=== PATIENT | male | born 1980 | race Caucasian/White ===

== ENCOUNTER 2023-08-20 10:07 | Emergency (ER) | payer SELFPAY ==
[2023-08-20 10:35] VITALS: BP 174/62; PULSE 86; RESP 18; TEMP 36.6; O2SAT 99; BMI 26.1
--- NOTE | 2023-08-20 10:35 | EXP.UTC ---
Discharge Plan Disposition Patient Disposition: Home, Self-Care Condition: Good Prescriptions Prescriptions: New amlodipine 5 mg tablet 5 mg PO DAILY Qty: 30 0RF No Action lisinopril 40 mg Tablet 40 mg PO DAILY Referrals Follow up/Referrals: Wang Valerio MD [Primary Care Provider] - See instructions Tyree Diez MD [Staff Physician] - See instructions Activity Restrictions/Add. Instructions Additional Instructions/Restrictions: Take the medications as directed. Follow up with your regular doctor. I put in a referral to cardiology because of your symptoms and your family history. Go to the ER for any chest pain. GO TO THE ER FOR ANY WORSENING SYMPTOMS Eat a low sodium diet. Try to keep your daily sodium intake to less than 2000 mg per day. Clinical Impressions Clinical Impression: Stage 2 hypertension, Family history of coronary artery disease Instructions Patient Instructions: Essential Hypertension, Amlodipine Discharge ED Provider: Ankush Luke [facility] General Stated complaint: fatigue, tingling in feet Time Seen by Provider: 08/20/23 10:35 History of Present Illness Provider Complaint: He states that for the past 1 month he has had fatigue, felt weak at times, felt bad, and had elevated blood pressure. He has a history of hypertension and he take lisinopril 40 mg daily for it. His pcp prescribed HCTZ at his last visit, but he was unable to take this because it made him feel very fatigued. He denies any chest pain and shortness of breath. He states that his potassium level was low once in the past and he felt bad like he has been feeling lately. Related Data Home Medications Medication Instructions Recorded Confirmed lisinopril 40 mg tablet 40 mg PO DAILY 08/20/23 08/20/23 Previous Rx's Medication Instructions Recorded amlodipine 5 mg tablet 5 mg PO DAILY #30 tabs 08/20/23 Allergies Allergy/AdvReac Type Severity Reaction Status Date / Time hydrochlorothiazide Allergy Verified 08/20/23 10:42 [facility] Disclaimer: The information contained in this section may have been updated after the patient was seen, as this information can be updated by other users. Social History Smoking Status: Never smoker alcohol intake: former current occupational status: employed Travel in the last 8 weeks: None ROS Obtained: Yes All systems reviewed & no additional complaints except as documented Constitutional Constitutional: Denies chills and Denies fever(s) Eyes Eyes: Denies eye discharge ENT Ears, Nose, Mouth, and Throat: Denies dizziness, Denies otalgia and Denies sore throat Cardiovascular Cardiovascular: Denies chest pain Respiratory Respiratory: Denies shortness of breath, Denies chest congestion, Denies cough, Denies stridor and Denies wheezing Gastrointestinal Gastrointestingal: Denies nausea or vomiting Musculoskeletal Musculoskeletal: Reports system reviewed and no additional complaints, except as documented and Denies arthralgias Integumentary/Breasts Skin/Breast: Denies rash Neurologic Neurologic: Denies dizziness and Denies paresthesias Allergic/Immunologic Allergic/Immunologic: Denies wheezing Physical Exam General General appearance: alert and in no apparent distress Head Head exam: atraumatic, normocephalic and normal inspection Eye Eye exam: Present normal appearance, PERRL and EOMI ENT ENT exam: Present normal exam, normal oropharynx, mucous membranes moist, TM's normal bilaterally and normal external ear exam Neck Neck exam: Present normal inspection, full ROM and trachea midline; Absent meningismus or lymphadenopathy Chest Chest inspection: Present normal inspection and symmetric chest wall rise; Absent tenderness Respiratory Respiratory exam: Present normal lung sounds bilaterally; Absent respiratory distress Cardiovascular Cardiovascular exam: Present regular rate and normal rhythm; Absent JVD Abdominal Exam Abdominal exam: Present soft and normal bowel sounds; Absent distention, tenderness or guarding Extremities Exam Extremities exam: Present normal inspection, full ROM and normal capillary refill; Absent calf tenderness Back Exam Back exam: Present normal inspection; Absent tenderness Neurological Exam Neurological exam: Present alert and oriented X3 Psychiatric Psychiatric exam: Present normal affect and normal mood Skin Skin exam: Present warm, dry, intact and normal color Lymphatic Lymphatic Findings: no adenopathy Medical Decision Making Medical Records Medical records reviewed: No I reviewed the patient's medical records. Kwadwo Inquiry Pt receiving controlled substance: No Lab Data Lab results reviewed: Yes I reviewed the patient's lab results. 08/20/23 11:02 08/20/23 11:02
--- NOTE | 2023-08-20 10:43 | XR_ITS ---
FINAL REPORT CLINICAL HISTORY: weakness COMPARISON: None FINDINGS: Two views of the chest were obtained. The heart size and pulmonary vascularity are within normal limits. The mediastinum is normal. No acute pulmonary abnormality is identified. There is no pneumothorax. The bony thorax is intact. IMPRESSION: No active cardiopulmonary disease. Reviewed, Interpreted and Dictated by Avinash Lucas III, MD Transcribed by Doris Ruby Authenticated and [facility]
--- NOTE | 2023-08-20 11:04 | PC.NURSE ---
Sent blood work to lab via tube system
[2023-08-20 11:09] LABS: Basophils # 0.1 K/mm3 (0-0.2); Basophils % 0.6 % (0.1-2.0); Eosinophils # 0.1 K/mm3 (0.0-0.4); Eosinophils % 1.1 % (0.1-12.0); Hemoglobin 16.5 g/dL (14.1-18.0); Lymphocytes % 18.5 % (10-50); Mean Corpuscular Hemoglobin 31.7 pg (27.0-31.2); Mean Corpuscular Volume 96.1 fl (80-94); Mean Platelet Volume 7.7 fl (7.4-10.4); Monocytes # 0.5 K/mm3 (0.1-1.0); Monocytes % 4.6 % (1.7-9.3); Neutrophils % 75.1 % (37.0-80.0); Platelet Count 318 K/mm3 (142-424); Red Blood Count 5.21 M/mm3 (4.60-6.20); Red Cell Distribution Width 13.6 % (11.5-17.5); White Blood Count 10.7 K/mm3 (4.8-10.8)
[2023-08-20 11:13] LABS: Chloride 106 mmol/L (98-107); Potassium 4.3 mmoL/L (3.5-5.1); Sodium 141 mmol/L (136-145)
[2023-08-20 11:15] LABS: Blood Urea Nitrogen 6 mg/dl (9-20); Creatinine Clearance Estimated 147 mL/min (50-200); Estimated Glomerular Filt Rate 106 ml/min (>60); GFR (African American) 128 ML/MIN (>60)
[2023-08-20 11:16] LABS: Anion Gap 15.3 mEq/L (5-15); Carbon Dioxide 24 mmol/L (22.0-30.0); Glucose 105 mg/dl (74-100)
[2023-08-20 11:17] LABS: Magnesium 2.1 mg/dl (1.6-2.3)
--- NOTE | 2023-08-20 11:23 | ECG_ITS ---
APPROVED REPORT Exam: Resting ECG HR:67 bpm ECG Measurements Heart Rate 67 AXES VT 122 P 44 QRSd 113 QRS 87 QT 380 T 61 QTc 395 Conclusion SINUS RHYTHM INCOMPLETE RIGHT BUNDLE BRANCH BLOCK [90+ ms QRS DURATION, TERMINAL R IN V1/V2, 40+ ms S IN I/aVL/V4/V5/V6] BORDERLINE ECG UNCONFIRMED REPORT Electronically signed by : Ankush Arreola, 08/20/2023 15:01:00
--- NOTE | 2023-08-20 12:11 | PC.NURSE ---
Gave patient a list a accepting PCP
[2023-08-20 12:13] VITALS: BP 174/62; PULSE 86; RESP 18; TEMP 36.6; O2SAT 99
== END 2023-08-20 12:13 | disposition home or self-care (01) ==
PROVIDERS: Emergency Provider Nurse Practitioner Family; PCP Family Medicine
DX: R53.83 Other fatigue (principal); R53.81 Other malaise; I10 Essential (primary) hypertension; Z82.49 Family history of ischemic heart disease and other diseases of the circulatory system
CPT/HCPCS: 71046; 80048; 83735; 85025; 93005; 99204; 99212; G0463

== ENCOUNTER 2023-08-22 09:44 | Emergency (ER) | payer SELFPAY ==
[2023-08-22] VITALS (9 sets, daily range): BP systolic 116–176; BP diastolic 77–99; PULSE 65–93; RESP 14–18; TEMP 36.5; O2SAT 94–100; BMI 25.0
--- NOTE | 2023-08-22 09:42 | ECG_ITS ---
APPROVED REPORT Exam: Resting ECG HR:95 bpm ECG Measurements Heart Rate 95 AXES ME 112 P 53 QRSd 118 QRS 80 QT 337 T 47 QTc 390 Conclusion SINUS RHYTHM WITH SHORT ME INTERVAL INCOMPLETE RIGHT BUNDLE BRANCH BLOCK [90+ ms QRS DURATION, TERMINAL R IN V1/V2, 40+ ms S IN I/aVL/V4/V5/V6] BORDERLINE ECG UNCONFIRMED REPORT Electronically signed by : Ankush Arreola, 08/22/2023 15:03:10
--- NOTE | 2023-08-22 09:50 | XR_ITS ---
FINAL REPORT CLINICAL HISTORY: racing heart weakness COMPARISON: 08/20/2023 FINDINGS: Two views of the chest were obtained. The heart size and pulmonary vascularity are within normal limits. The mediastinum is normal. No acute pulmonary abnormality is identified. There is no pneumothorax. The bony thorax is intact. IMPRESSION: No active cardiopulmonary disease. Reviewed, Interpreted and Dictated by Avinash Lucas III, MD Transcribed by Darcy Shelley Authenticated and [facility]
[2023-08-22 09:58] LABS: Basophils # 0.1 K/mm3 (0-0.2); Basophils % 0.6 % (0.1-2.0); Eosinophils # 0.3 K/mm3 (0.0-0.4); Eosinophils % 1.4 % (0.1-12.0); Hematocrit 51.7 % (42.0-52.0); Hemoglobin 16.7 g/dL (14.1-18.0); Lymphocytes # 4.1 K/mm3 (0.7-4.5); Lymphocytes % 20.7 % (10-50); Mean Corpuscular HGB Conc 32.3 g/dL (31.8-35.4); Mean Corpuscular Hemoglobin 31.7 pg (27.0-31.2); Mean Corpuscular Volume 98.1 fl (80-94); Mean Platelet Volume 7.6 fl (7.4-10.4); Monocytes # 0.9 K/mm3 (0.1-1.0); Monocytes % 4.5 % (1.7-9.3); Neutrophils # 14.3 K/mm3 (1.8-7.8); Neutrophils % 72.8 % (37.0-80.0); Platelet Count 388 K/mm3 (142-424); Red Blood Count 5.27 M/mm3 (4.60-6.20); Red Cell Distribution Width 13.5 % (11.5-17.5); White Blood Count 19.6 K/mm3 (4.8-10.8)
[2023-08-22 10:02] LABS: MANUAL DIFFERENTIAL MANUAL DIFFERENTIAL (MANUAL DIFF)
[2023-08-22 10:04] LABS: Alanine Aminotransferase 58 U/L (12-78); Albumin Level 5.2 g/dl (3.5-5.0); Albumin/Globulin Ratio 1.6 (1.1-1.8); Alkaline Phosphatase 100 U/L (38-126); Anion Gap 21.4 mEq/L (5-15); Aspartate Amino Transferase 53 U/L (17-59); Bilirubin,Total 0.8 mg/dl (0.2-1.3); Blood Urea Nitrogen 7 mg/dl (9-20); Calcium 9.9 mg/dl (8.4-10.2); Carbon Dioxide 21 mmol/L (22.0-30.0); Chloride 102 mmol/L (98-107); Creatinine Clearance Estimated 141 mL/min (50-200); Estimated Glomerular Filt Rate 106 ml/min (>60); GFR (African American) 128 ML/MIN (>60); Globulin 3.3 g/dL (1.3-3.2); Glucose 142 mg/dl (74-100); Potassium 3.4 mmoL/L (3.5-5.1); Sodium 141 mmol/L (136-145); Total Protein,Serum 8.5 g/dl (6.3-8.2)
[2023-08-22 10:39] LABS: Troponin I < 0.01 ng/ml (0.00-0.034)
[2023-08-22 10:57] LABS: Thyroid Stimulating Hormone 1.11 uIU/mL (0.465-4.68)
[2023-08-22 10:58] LABS: Lymphocytes % 34 % (10-50); Monocytes % 3 % (2-9); Neutrophils % 63 % (42-76); Total Cells Counted 100
[2023-08-22 11:01] LABS: RBC Morphology Normal
[2023-08-22 11:02] LABS: Platelet Estimate Normal
--- NOTE | 2023-08-22 11:04 | HMH.EDGENADL ---
Discharge Plan Disposition Patient Disposition: Home, Self-Care Prescriptions Prescriptions: New loperamide 2 mg capsule 2 mg PO Q6H PRN (Reason: loose stool) 5 Days Qty: 20 0RF Rx Instructions: Please take 4 mg initially, followed by 2 mg after each loose stool, maximum 16 mg/day ondansetron 4 mg tablet,disintegrating 4 mg PO Q6H PRN (Reason: nausea and vomiting) 5 Days Qty: 20 0RF No Action lisinopril 40 mg Tablet 40 mg PO DAILY amlodipine 5 mg tablet 5 mg PO DAILY Qty: 30 0RF Referrals Follow up/Referrals: Wang Valerio MD [Primary Care Provider] - See instructions Michelle Huber APRN [Nurse Practitioner] - See instructions Tyree Diez MD [Staff Physician] - See instructions Activity Restrictions/Add. Instructions Additional Instructions/Restrictions: No evidence of an acute cardiopulmonary emergency today. You have been set up with an event/Holter monitor please follow-up with cardiology regarding this as well as your chest pain. Also may follow-up with Michelle Huber regarding your anxiety and stress. Return with any significant worsening of your symptoms or other concerns. Clinical Impressions Clinical Impression: Palpitations, Anxiety, Nausea vomiting and diarrhea, Atypical chest pain Discharge ED Provider: Jeffrey Arreola General Adult HPI General Chief complaint: Arrhythmia/Palpitations Stated complaint: chest pain Time Seen by Provider: 08/22/23 10:51 Mode of Arrival: Ambulatory Source of Information: Patient Limitations: No Limitations Description of Symptoms (Recalled from ER Triage Doc. by RN): Patient reports that his heart has been racing for approx 1 week. Also complains of generalized weakness. History of Present Illness HPI narrative: Patient is a 43-year-old male presents today with palpitations and chest discomfort. States has had some palpitations this started with some vomiting and diarrhea on Saturday and has been intermittently associate with some chest discomfort he states he feels as if something is leaving his body when he is having these palpitation episodes. Most recently prior to arrival felt as though he might pass out. Patient currently is asymptomatic. Patient does have a family history both father and maternal grandfather of having coronary disease and they inquire about getting stress test and heart cath. He has not had any exertional symptoms no diaphoresis associated with this shortness of breath radiation etc. Describes it as a pounding and heart fluttering. Related Data Home Medications Medication Instructions Recorded Confirmed lisinopril 40 mg tablet 40 mg PO DAILY 08/20/23 08/20/23 Previous Rx's Medication Instructions Recorded amlodipine 5 mg tablet 5 mg PO DAILY #30 tabs 08/20/23 loperamide 2 mg capsule 2 mg PO Q6H PRN loose stool 5 days 08/22/23 #20 caps ondansetron 4 mg disintegrating 4 mg PO Q6H PRN nausea and 08/22/23 tablet vomiting 5 days #20 tabs Allergies Allergy/AdvReac Type Severity Reaction Status Date / Time hydrochlorothiazide Allergy Verified 08/20/23 10:42 [facility] Disclaimer: The information contained in this section may have been updated after the patient was seen, as this information can be updated by other users. Social History (Updated 08/20/23 @ 14:25 by Ankush Luke APRN) Smoking Status: Current every day smoker alcohol intake: former current occupational status: employed Travel in the last 8 weeks: None ROS Obtained: Yes All systems reviewed & no additional complaints except as documented Physical Exam General General appearance: alert and in no apparent distress Respiratory Respiratory exam: Present normal lung sounds bilaterally Cardiovascular Cardiovascular exam: Present regular rate Neurological Exam Neurological exam: Present alert and oriented X3 Medical Decision Making Kwadwo Inquiry Pt receiving controlled substance: No Vital Signs: 08/22/23 09:44 08/22/23 10:05 08/22/23 10:37 Temperature 97.7 F Temperature Source Oral Pulse Rate 89 87 Pulse Rate [Radial] 93 H Respiratory Rate 18 16 15 Blood Pressure 162/97 H 120/88 Blood Pressure [Right Arm] 176/99 H Blood Pressure Mean [Right Arm] 124 Blood Pressure Source [Right Arm] Automatic Cuff Blood Pressure Position [Right Arm] Sitting 02 Sat by Pulse Oximetry 100 99 96 Oxygen Delivery Method Room Air 08/22/23 11:00 08/22/23 11:30 08/22/23 12:00 Temperature Temperature Source Pulse Rate 77 70 65 Pulse Rate [Radial] Respiratory Rate 16 14 16 Blood Pressure 137/84 116/77 131/82 Blood Pressure [Right Arm] Blood Pressure Mean [Right Arm] Blood Pressure Source [Right Arm] Blood Pressure Position [Right Arm] 02 Sat by Pulse Oximetry 96 94 L 97 Oxygen Delivery Method 08/22/23 12:30 Temperature Temperature Source Pulse Rate 81 Pulse Rate [Radial] Respiratory Rate 14 Blood Pressure 124/82 Blood Pressure [Right Arm] Blood Pressure Mean [Right Arm] Blood Pressure Source [Right Arm] Blood Pressure Position [Right Arm] 02 Sat by Pulse Oximetry 97 Oxygen Delivery Method Lab Data Lab results reviewed: Yes I reviewed the patient's lab results. Lab Results 08/22/23 09:45: WBC 19.6 H D, RBC 5.27, Hgb 16.7, Hct 51.7, MCV 98.1 H, MCH 31.7 H, MCHC 32.3, RDW 13.5, Plt Count 388, MPV 7.6, Neut % (Auto) 72.8, Lymph % (Auto) 20.7, [place] % (Auto) 4.5, Eos % (Auto) 1.4, Baso % (Auto) 0.6, Neut # (Auto) 14.3 H, Lymph # (Auto) 4.1, [place] # (Auto) 0.9, Eos # (Auto) 0.3, Baso # (Auto) 0.1, Total Counted 100, Neutrophils % (Manual) 63, Lymphocytes % (Manual) 34, Monocytes % (Manual) 3, Platelet Estimate Normal, RBC Morphology Normal, Sodium 141, Potassium 3.4 L D, Chloride 102, Carbon Dioxide 21 L, Anion Gap 21.4 H, BUN 7 L, Creatinine 0.80, Estimated Creat Clear 141, Estimated GFR 106, Est GFR ( Amer) 128, Glucose 142 H, Calcium 9.9, Magnesium 2.0, Total Bilirubin 0.8, AST 53, ALT 58, Alkaline Phosphatase 100, Troponin I < 0.01, Total Protein 8.5 H, Albumin 5.2 H, Globulin 3.3 H, Albumin/Globulin Ratio 1.6, TSH 1.11 08/22/23 09:45 08/22/23 09:45 Orders (Tests/Meds): ED MEDICATIONS Generic Name Dose Route Start Last Admin Trade Name Freq PRN Reason Stop Dose Admin Sodium Chloride 10 ml 08/22/23 09:55 Sodium Chloride 0.9% 10ml Flush Syringe IV 09/21/23 09:54 NEEDED PRN Maintain IV Site ORDERS Category Date Time Status XR chest 2V Stat Exams 08/22/23 09:50 Completed Complete Blood Count Auto Diff Stat Lab 08/22/23 09:45 Completed Comprehensive Metabolic Panel Stat Lab 08/22/23 09:45 Completed Magnesium Stat Lab 08/22/23 09:45 Completed TSH [Thyroid Stimulating Hormone] Stat Lab 08/22/23 09:45 Completed Troponin I Q3H Lab 08/22/23 13:00 Ordered Troponin I Q3H Lab 08/22/23 16:00 Ordered Troponin I Stat Lab 08/22/23 09:45 Completed ECG Data Tracing #1: I reviewed this ECG and interpreted as documented below: Ventricular 95 normal sinus rhythm normal axis no significant conduction abnormalities noted there is an incomplete right bundle branch block which is nonspecific HEART Score History (anamnesis): Slightly suspicious ECG: Non-specific disturbance Age: <45 years Risk factors: 1-2 risk factors Troponin: </= normal limit HEART Score: 2 Medical Decision Narrative: Well-appearing 43-year-old with above history. Patient has a low heart score. Troponin undetectably low's been having symptoms for several days at this point no serial troponins needed. Acute coronary syndrome is unlikely. Patient is PERC negative pulmonary embolism is unlikely. He was placed on a monitor no arrhythmia noted however he did state that he still had some palpitations but he was in a normal sinus rhythm the entire time he was here. EKG was unremarkable specifically nothing to explain any type of palpitation arrhythmia syncope at [facility]. With his family history of coronary artery disease he is very concerned about this he will follow-up with cardiology. We are getting a Holter monitor set up for him from the emergency department he will follow-up with cardiology regarding that as well. He states he also has been having some significant anxiety and stress with his daughter and his father recently and he thinks that anxiety may be contributing to this. Lastly he states he also has been having diarrhea and vomiting and possibly has a viral syndrome. Nonetheless he is very well-appearing no emergent medical condition identified specifically no evidence of cardiopulmonary emergency he has been given close outpatient follow-up with cardiology which she understands. He was discharged in stable condition. Critical Care Critical Care Time Critical Care Time: No
--- NOTE | 2023-08-22 13:03 | PC.NURSE ---
Respiratory called to place holter monitor.
--- NOTE | 2023-08-22 13:12 | PC.NURSE ---
WEnt to dc pt, pt mother was did not want pt to be dc, states she wanted pt to stay a few more hours to be monitored, to get up and see if he had an episode so we could catch it. Mother states that the family history of heart attacks is something that concerns her with letting her son go home. Pt states the MD explained the low risk of heart attack and he was being sent home with a holter monitor which would catch an event if he had one, mother states that she wants the MD to come the bedside for further discussion. aware cardiology contacted at this time.
--- NOTE | 2023-08-22 13:14 | PC.NURSE ---
Contacted cardiology to come speak with pt and family
--- NOTE | 2023-08-22 13:36 | PC.NURSE ---
Cardiolomarin Zamora PASSENGER SERVICE AGENT at [facility]
--- NOTE | 2023-08-22 14:00 | EXP.CARD.CON ---
History of Present Illness History of Present Illness Consult date: 08/22/23 Requesting physician: Jeffrey Arreola Consult reason: hypertension Chief complaint: Htn, SOA, tingling History of present illness: 43-year-old white male without known cardiovascular disease presented to the emergency room today with complaints of shortness of breath irregular heartbeat sensation tingling in bilateral upper and lower extremities. He states the symptoms have been occurring episodically for 6 months. They are not affected by activity and not improved with rest. On arrival his blood pressure is 170s and quickly improved to 130s. Troponin and EKG WNL. His symptoms were not necessarily worse today but his family insisted he be evaluated due to family history of cardiovascular disease. Patient's father in April and he has been taking it really hard and having anxiety since that time. He is also dealing with a personal issue with his children at home. Patient was going to be discharged by the emergency room staff but his mother came and was very insistent that he have further workup. After our conversation she feels reassured and we will get him in for testing this week. Patient is leaving next Saturday to go to [place] for camping in [place] for [address] [facility] Disclaimer: The information contained in this section may have been updated after the patient was seen, as this information can be updated by other users. Social History Smoking Status: Current every day smoker alcohol intake: former current occupational status: employed Travel in the last 8 weeks: None Review of Systems Constitutional Constitutional: Denies fatigue and Denies weakness Eyes Eyes: Denies loss of vision ENT Ears, Nose, Mouth, and Throat: Denies hearing loss and Denies vertigo *Cardiovascular Cardiovascular: Denies chest pain, Denies dyspnea and Denies syncope *Respiratory Respiratory: Denies cough and Denies dyspnea *Gastrointestinal Gastrointestinal: Denies change in stool character, Denies nausea and Denies vomiting *Genitourinary Genitourinary: Denies difficulty urinating *Musculoskeletal Musculoskeletal: Denies muscle weakness Integumentary/Breasts Skin/Breast: Denies changing lesions *Neurologic Neurologic: Denies loss of vision, Denies syncope, Denies vertigo and Denies weakness Endocrine Endocrine: Denies fatigue Exam Data for Last 24 hours Vital signs and Labs for Last 24 Hours: Temp Pulse Resp BP Pulse Ox O2 Del Method 97.7 F 88 16 147/90 H 97 Room Air 08/22/23 13:54 08/22/23 13:54 08/22/23 13:54 08/22/23 13:54 08/22/23 13:00 08/22/23 13:54 Laboratory Results - last 24 hr 08/22/23 09:45: WBC 19.6 H D, RBC 5.27, Hgb 16.7, Hct 51.7, MCV 98.1 H, MCH 31.7 H, MCHC 32.3, RDW 13.5, Plt Count 388, MPV 7.6, Neut % (Auto) 72.8, Lymph % (Auto) 20.7, [place] % (Auto) 4.5, Eos % (Auto) 1.4, Baso % (Auto) 0.6, Neut # (Auto) 14.3 H, Lymph # (Auto) 4.1, [place] # (Auto) 0.9, Eos # (Auto) 0.3, Baso # (Auto) 0.1, Total Counted 100, Neutrophils % (Manual) 63, Lymphocytes % (Manual) 34, Monocytes % (Manual) 3, Platelet Estimate Normal, RBC Morphology Normal, Sodium 141, Potassium 3.4 L D, Chloride 102, Carbon Dioxide 21 L, Anion Gap 21.4 H, BUN 7 L, Creatinine 0.80, Estimated Creat Clear 141, Estimated GFR 106, Est GFR ( Amer) 128, Glucose 142 H, Calcium 9.9, Magnesium 2.0, Total Bilirubin 0.8, AST 53, ALT 58, Alkaline Phosphatase 100, Troponin I < 0.01, Total Protein 8.5 H, Albumin 5.2 H, Globulin 3.3 H, Albumin/Globulin Ratio 1.6, TSH 1.11 I & O for Last 24 hours: Intake & Output 08/19/23 08/20/23 08/21/23 08/22/23 23:59 23:59 23:59 23:59 Weight 185 lb Constitutional Constitutional: no acute distress and cooperative *Routine HEENT Exam Eye: Present PERRL *Routine Respiratory Exam Respiratory: Present CTA bilaterally; Absent accessory muscle use, wheezes or crackles *Routine Cardiovascular Exam Cardiovascular: Present RRR, Normal S1 and Normal S2; Absent murmur, gallop or rubs *Routine Abdominal Exam Abdominal: Present soft; Absent tenderness *Routine Extremities Exam Extremities: Present pulses intact; Absent cyanosis or edema *Routine Skin Exam Skin: Present intact; Absent erythema or wounds *Routine Neurological Exam Neurological: Present alert and oriented X3 Routine Psychiatric Exam Psychiatric: Present cooperative Meds Home Medications and Allergies Home Medications Medication Instructions Recorded Confirmed Type amlodipine 5 mg tablet 5 mg PO DAILY #30 tabs 08/20/23 Rx lisinopril 40 mg tablet 40 mg PO DAILY 08/20/23 08/20/23 History loperamide 2 mg capsule 2 mg PO Q6H PRN loose stool 5 days 08/22/23 Rx #20 caps ondansetron 4 mg disintegrating 4 mg PO Q6H PRN nausea and 08/22/23 Rx tablet vomiting 5 days #20 tabs New Prescriptions to Start Prescriptions: loperamide Jeffrey Arreola ondansetron Jeffrey Arreola Allergies Allergy/AdvReac Type Severity Reaction Status Date / Time hydrochlorothiazide Allergy Verified 08/20/23 10:42 Assessment and Plan *Assessment and plan (1) Hypertension: Status: Acute Category: Medical Code(s): I10 - Essential (primary) hypertension (2) Family history of coronary artery disease: Status: Acute Category: Medical Code(s): Z82.49 - Family history of ischemic heart disease and other diseases of the circulatory system (3) Anxiety: Status: Acute Category: Medical Code(s): F41.9 - Anxiety disorder, unspecified Plan Hypertension -Overall well-controlled, continue lisinopril and amlodipine. He can use as needed hydralazine for BP greater than 180. -Keep twice daily blood pressure log -Outpatient will check secondary hypertension workup Shortness of breath and palpitations -Troponin and EKG and labs unremarkable here. -GXT, echo, 48-hour Holter Palpitations -Patient was describing symptoms of palpitations with normal sinus rhythm noted on telemetry, this is likely anxiety driven -Check 48-hour Holter Anxiety -Patient plans to follow-up with his primary care doctor CV stable for DC with outpatient testing within 1 week if possible.
== END 2023-08-22 13:56 | disposition home or self-care (01) ==
PROVIDERS: Emergency Provider Student in an Organized Health Care Education/Training Program; PCP Family Medicine
DX: I10 Essential (primary) hypertension (principal); F41.9 Anxiety disorder, unspecified; R07.89 Other chest pain; R11.2 Nausea with vomiting, unspecified; R19.7 Diarrhea, unspecified; R00.2 Palpitations; F17.210 Nicotine dependence, cigarettes, uncomplicated; Z82.49 Family history of ischemic heart disease and other diseases of the circulatory system
CPT/HCPCS: 71046; 80053; 83735; 84443; 84484; 85007; 85025; 93005; 93225; 93226; 93227; 99284

== ENCOUNTER 2024-04-30 13:55 | Emergency (ER) | payer OTHER, SELFPAY ==
[2024-04-30] VITALS (8 sets, daily range): BP systolic 128–174; BP diastolic 71–103; PULSE 87–105; RESP 13–20; TEMP 36.7; O2SAT 96–100; BMI 27.1
--- NOTE | 2024-04-30 14:13 | PC.WOUNDNOTE ---
[facility] notified of need for EKG
--- NOTE | 2024-04-30 14:16 | ECG_ITS ---
APPROVED REPORT Exam: Resting ECG HR:104 bpm ECG Measurements Heart Rate 104 AXES DE 139 P 51 QRSd 113 QRS 91 QT 331 T 13 QTc 391 Conclusion SINUS TACHYCARDIA BORDERLINE RIGHT AXIS DEVIATION [QRS AXIS > 90] MODERATE INTRAVENTRICULAR CONDUCTION DELAY [110+ ms QRS DURATION] NONSPECIFIC T-WAVE ABNORMALITY ABNORMAL RHYTHM ECG UNCONFIRMED REPORT Electronically signed by : Ericka Hill, 04/30/2024 16:36:17
--- NOTE | 2024-04-30 14:37 | ED_ITS ---
<Statement entered by Ericka Hill MD - 05/03/24 00:04> I was consulted by the MONICA, and we discussed the complexity of problems being addressed. I approved the treatment and management plan for this patient's care in the emergency department, thus performing a substantive portion of the medical decision making. Ericka Hill MD <Statement entered by Chacha Guerra DO - 04/30/24 23:54> I was consulted by the MONICA, and we discussed the complexity of the problems being addressed. I approved the treatment and management plan for this patient's care in the emergency department, thus performing a substantive portion of the medical decision making. Chacha Guerra DO Discharge Plan Disposition Patient Disposition: Home, Self-Care Condition: Good Prescriptions Prescriptions: No Action lisinopril 40 mg Tablet 40 mg PO DAILY amlodipine 5 mg tablet 5 mg PO DAILY Qty: 30 0RF loperamide 2 mg capsule 2 mg PO Q6H PRN (Reason: loose stool) 5 Days Qty: 20 0RF Rx Instructions: Please take 4 mg initially, followed by 2 mg after each loose stool, maximum 16 mg/day ondansetron 4 mg tablet,disintegrating 4 mg PO Q6H PRN (Reason: nausea and vomiting) 5 Days Qty: 20 0RF Referrals Follow up/Referrals: Janey Presley APRN [Primary Care Provider] - See instructions Michelle Huber APRN [Nurse Practitioner] - See instructions Nacho Fernandez MD [Staff Physician] - See instructions Activity Restrictions/Add. Instructions Additional Instructions/Restrictions: As we discussed you need to follow back up with your PCP for further workup of tachycardia from a medical standpoint. I have referred you to both cardiology and behavioral health for your tachycardia and for your anxiety symptoms. If you have any new continued or worsening signs or symptoms follow-up with your PCP sooner. Clinical Impressions Clinical Impression: Tachycardia, Anxiety Print Language Print Language: Mauritanian Discharge ED Provider: Chacha Guerra General Adult HPI General Chief complaint: Arrhythmia/Palpitations Stated complaint: heart pounding,soa, weak, shaky Time Seen by Provider: 04/30/24 14:37 Mode of Arrival: Ambulatory Source of Information: Patient Limitations: No Limitations Description of Symptoms (Recalled from ER Triage Doc. by RN): Pt presents with c/o heart pouding and feeling like his heart is skipping a beat since saturday. Pt states he has a hx of anxiety History of Present Illness HPI narrative: Patient presents for evaluation of palpitations . Patient states that he has been having palpitations for the last 3 days. Patient states that he has been evaluated for this before and was told that it was anxiety and discharge when he was seen for this last summer. Patient has not had any further evaluation from a cardiac or mental health standpoint. Patient said his PCP is starting him on BuSpar which seems to control his symptoms however over the last 3 days he just feels like his heart is beating out of his chest. He denies actual chest pain fever chills shortness of breath hemoptysis hematochezia melena nausea vomiting diarrhea. Patient works every day. Related Data Home Medications ?Medication ?Instructions ?Recorded ?Confirmed lisinopril 40 mg tablet 40 mg PO DAILY 08/20/23 04/30/24 Previous Rx's ?Medication ?Instructions ?Recorded amlodipine 5 mg tablet 5 mg PO DAILY #30 tabs 08/20/23 loperamide 2 mg capsule 2 mg PO Q6H PRN loose stool 5 days 08/22/23 #20 caps ondansetron 4 mg disintegrating 4 mg PO Q6H PRN nausea and 08/22/23 tablet vomiting 5 days #20 tabs Allergies Allergy/AdvReac Type Severity Reaction Status Date / Time hydrochlorothiazide Allergy Verified 08/20/23 10:42 [facility] Disclaimer: The information contained in this section may have been updated after the patient was seen, as this information can be updated by other users. Social History Smoking Status: Former smoker alcohol intake: former current occupational status: employed Travel in the last 8 weeks: None Have you lived/traveled outside [place] in past 30 days?: No Contact w/someone who lives/traveled outside US past 30 days?: No Exposure to someone with infectious disease in past 14 days?: No Do you have a fever (greater than 100.4 F or 38 C)?: No Have you tested positive for COVID-19: No Exposed to someone with COVID-19 in past 14 days?: No Do you have a sore throat?: No Do you have a cough?: No Do you have any weakness?: No Do you have any diarrhea?: No Are you experiencing any unusual bleeding?: No Do you have any muscle aches/pain?: No Do you have any abdominal pain?: No Are you experiencing loss of taste or smell?: No ROS Obtained: Yes Systems reviewed as appropriate & no additional complaints except as documented Physical Exam General General appearance: alert and in no apparent distress Respiratory Respiratory exam: Present normal lung sounds bilaterally Cardiovascular Cardiovascular exam: Present tachycardia Neurological Exam Neurological exam: Present alert, oriented X3 and CN II-XII intact Psychiatric Psychiatric exam: Present anxious Medical Decision Making Medical Records Medical records reviewed: Yes I reviewed the patient's medical records. Screening: Per USPSTF and CDC recommendations, given the prevalence of disease in our region, it is our hospital?s policy to screen for HIV and viral Hepatitis for all patients aged 18 and over and those with ongoing risk factors. Kwadwo Inquiry Pt receiving controlled substance: No Vital Signs: 04/30/24 14:13 04/30/24 14:41 04/30/24 15:00 Temperature 98.0 F Temperature Source Oral Pulse Rate 98 H 96 H Pulse Rate [Right] 105 H Respiratory Rate 18 20 Blood Pressure 168/95 H 165/103 H Blood Pressure [Right Arm] 174/99 H Blood Pressure Mean [Right Arm] 124 Blood Pressure Source [Right Arm] Automatic Cuff Blood Pressure Position [Right Arm] Sitting 02 Sat by Pulse Oximetry 98 97 99 Oxygen Delivery Method Room Air Room Air Room Air 04/30/24 15:36 04/30/24 16:01 Temperature Temperature Source Pulse Rate 95 H 100 H Pulse Rate [Right] Respiratory Rate 15 Blood Pressure 157/101 H 128/71 Blood Pressure [Right Arm] Blood Pressure Mean [Right Arm] Blood Pressure Source [Right Arm] Blood Pressure Position [Right Arm] 02 Sat by Pulse Oximetry 99 100 Oxygen Delivery Method Room Air Room Air Lab Data Lab results reviewed: Yes I reviewed the patient's lab results. Lab Results 04/30/24 14:38: WBC 10.4, RBC 4.84, Hgb 15.0, Hct 42.8, MCV 88.4, MCH 31.0, MCHC 35.0, RDW 12.8, Plt Count 370, MPV 9.3, Neut % (Auto) 68.8, Lymph % (Auto) 22.0, Ross % (Auto) 7.5, Eos % (Auto) 0.9, Baso % (Auto) 0.4, Neut # (Auto) 7.1, Lymph # (Auto) 2.3, Ross # (Auto) 0.8, Eos # (Auto) 0.1, Baso # (Auto) 0.0, Sodium 137, Potassium 3.7, Chloride 101, Carbon Dioxide 27, Anion Gap 12.7, BUN 6 L, Creatinine 0.70, Estimated Creat Clear 175, Estimated GFR 123, Est GFR ( Amer) 149, Glucose 120 H, Calcium 9.4, Magnesium 1.9, Total Bilirubin 0.3, AST 52, ALT 46, Alkaline Phosphatase 68, Troponin I < 0.01, NT-Pro-B Natriuret Pep < 20.0, Total Protein 7.7, Albumin 5.1 H, Globulin 2.6, Albumin/Globulin Ratio 2.0 H, TSH 1.19, Free T4 Index 2.9 L, Thyroxine (T4) 8.7, T3 Uptake 33 04/30/24 15:17: Urine Opiates Screen Negative, Urine Methadone Screen Negative, Ur Barbituates Screen Negative, Ur Phencyclidine Scrn Negative, Ur Amphetamines Screen Negative, U Benzodiazepines Scrn Negative, Urine Cocaine Screen Negative, U Marijuana (THC) Screen Negative 04/30/24 15:18: Urine Color Yellow, Urine Appearance Clear, Urine pH 7.5, Ur Specific [place] 1.010, Urine Protein Negative, Urine Glucose (UA) Negative, Urine Ketones Negative, Urine Blood Negative, Urine Nitrate Negative, Urine Bilirubin Negative, Urine Urobilinogen 0.2, Ur Leukocyte Esterase Negative, Urine RBC Occasional, Ur Squamous Epith Cells Occasional 04/30/24 14:38 04/30/24 14:38 Orders (Tests/Meds): ED MEDICATIONS Generic Name Dose Route Start Last Admin Trade Name Freq PRN Reason Stop Dose Admin Sodium Chloride 10 ml 04/30/24 15:03 Sodium Chloride 0.9% 10ml Vial IV 05/30/24 15:02 NEEDED PRN to Dilute Lorazepam inj Discontinued Medications Generic Name Dose Route Start Last Admin Trade Name Freq PRN Reason Stop Dose Admin Lorazepam 1 mg 04/30/24 15:03 04/30/24 15:10 Lorazepam 2mg/Ml Vial IV 04/30/24 15:04 1 mg ONCE ONE Administration ORDERS Category Date Time Status BNP [NT Pro Brain Natriuretic Pep.] Stat Lab 04/30/24 14:38 Completed CBC w/Auto Diff [Complete Blood Count Auto Diff] Stat Lab 04/30/24 14:38 Completed CMP [Comprehensive Metabolic Panel] Stat Lab 04/30/24 14:38 Completed D-Dimer Stat Lab 04/30/24 15:03 Received Magnesium Stat Lab 04/30/24 14:38 Completed Thyroid Panel Stat Lab 04/30/24 14:38 Completed Trop I [Troponin I] Stat Lab 04/30/24 14:38 Completed Troponin I Q3H Lab 04/30/24 18:15 Ordered Troponin I Q3H Lab 04/30/24 21:15 Ordered UA [Urinalysis and Microscopic] Stat Lab 04/30/24 15:18 Completed UDS [Drug Screen,Urine] Stat Lab 04/30/24 15:17 Completed ECG holter initial pfn Routine Y 04/30/24 15:05 Completed HEART Score History (anamnesis): Slightly suspicious ECG: Non-specific disturbance Age: <45 years Risk factors: 1-2 risk factors Troponin: </= normal limit HEART Score: 2 Medical Decision Narrative: In summary patient is a 3-year-old male who presents to the emergency department for evaluation of palpitations. Patient is initially hypertensive at 174/99 tachycardic at 105 with sinus tachycardia the bedside monitor upon arrival, afebrile. Physical exam is remarkable for a well-nourished well-developed 43-year-old gentleman who does not appear to be acute distress. Patient does have pressured of speech and intensity and is difficult to have a [id number] conversation due to his rapid answers however he is appropriate with a Stu Coma Score 15 awake alert and oriented person place and circumstance with cranial nerves II through XII intact grossly to exam. Physical exam is unremarkable and nonfocal including normal breath sounds normal heart sounds no tenderness to palpation abdomen normal bowel sounds neck is supple without JVD or lymphadenopathy thyroid is nonpalpable no carotid bruits.. Differential diagnosis includes ACS versus tachyarrhythmia versus endocrine abnormality versus anxiety. I considered PE but patient has had symptoms for 3 days he has no dyspnea he has no cardiac symptoms his EKG is sinus tachycardia and he has been worked up for anxiety before thus he is low risk and has no risk factors for PE. Initial workup will be conducted with hematologic labs twelve-lead EKG urinalysis urine drug screen.. Initial interventions include Ativan. Initial workup reviewed by me is reassuring and shows that his hematologic labs are nonactionable his troponin is undetectable and after 3 days likely appear cardiac in nature twelve-lead EKG shows sinus tachycardia without evidence of ACS urinalysis is bland urine drug screen negative. Upon repeat evaluation patient reported feeling back to normal after the Ativan. Given this patient is appropriate for discharge with close follow-up with his PCP for further workup of both anxiety and the tachyarrhythmia from a medical standpoint, referral to behavioral health for more comprehensive evaluation of his anxiety and appropriate medications for his BuSpar is likely ineffective monotherapy, and referral to cardiology for further workup of cardiovascular causes of his tachyarrhythmia. Patient verbalized good understanding and agreement. Critical Care Critical Care Time Critical Care Time: No
[2024-04-30] MEDS: LORazepam 2MG/ML VIAL 1 MG IV (15:10)
[2024-04-30 15:13] LABS: Basophils % 0.4 % (0.1-2.0); Eosinophils # 0.1 K/mm3 (0.0-0.4); Eosinophils % 0.9 % (0.1-12.0); Hematocrit 42.8 % (42.0-52.0); Lymphocytes # 2.3 K/mm3 (0.7-4.5); Mean Corpuscular Volume 88.4 fl (80-94); Mean Platelet Volume 9.3 fl (7.4-10.4); Monocytes # 0.8 K/mm3 (0.1-1.0); Monocytes % 7.5 % (1.7-9.3); Neutrophils # 7.1 K/mm3 (1.8-7.8); Neutrophils % 68.8 % (37.0-80.0); Platelet Count 370 K/mm3 (142-424); Red Blood Count 4.84 M/mm3 (4.60-6.20); Red Cell Distribution Width 12.8 % (11.5-17.5); White Blood Count 10.4 K/mm3 (4.8-10.8)
[2024-04-30 15:16] LABS: Albumin Level 5.1 g/dl (3.5-5.0); Chloride 101 mmol/L (98-107)
[2024-04-30 15:17] LABS: Potassium 3.7 mmoL/L (3.5-5.1); Sodium 137 mmol/L (136-145)
[2024-04-30 15:19] LABS: Alanine Aminotransferase 46 U/L (12-78); Aspartate Amino Transferase 52 U/L (17-59); Blood Urea Nitrogen 6 mg/dl (9-20); Creatinine Clearance Estimated 175 mL/min (50-200); Estimated Glomerular Filt Rate 123 ml/min (>60); GFR (African American) 149 ML/MIN (>60)
[2024-04-30 15:20] LABS: Alkaline Phosphatase 68 U/L (38-126); Anion Gap 12.7 mEq/L (5-15); Bilirubin,Total 0.3 mg/dl (0.2-1.3); Calcium 9.4 mg/dl (8.4-10.2); Carbon Dioxide 27 mmol/L (22.0-30.0); Globulin 2.6 g/dL (1.3-3.2); Glucose 120 mg/dl (74-100); Magnesium 1.9 mg/dl (1.6-2.3); Total Protein,Serum 7.7 g/dl (6.3-8.2)
[2024-04-30 15:22] LABS: Microscopic, Urine URINE MICROSCOPIC (MICROSCOPIC)
[2024-04-30 15:25] LABS: Appearance,Urine CLEAR (Clear); Bilirubin,Urine Negative (Negative); Blood, Urine Negative (Negative); Color,Urine YELLOW (Yellow); Glucose,Urine (UA) Negative (Negative); Ketones,Urine Negative (Negative); Leukocyte Esterase,Urine Negative (Negative); Nitrate,Urine Negative (Negative); PH,Urine 7.5 (5.0-8.5); Protein,Urine Negative (Negative); Urobilinogen,Urine 0.2 EU/dl (0.2)
[2024-04-30 15:29] LABS: NT Pro Brain Natriuretic Pep. < 20.0 pg/mL (0-125)
[2024-04-30 15:45] LABS: RBC,Urine Occasional #/hpf (0-3); Squamous Epithelial Cell,Urine Occasional #/hpf (0-5)
[2024-04-30 16:06] LABS: Triiodothryronine (T3) Uptake 33 % (23.5-40.5)
[2024-04-30 16:07] LABS: Free Thyroxine Index 2.9 ug/dL (5.93-13.13); T4 (Thyroxine) 8.7 ug/dl (5.53-11.0)
[2024-04-30 16:10] LABS: Amphetamine/Metha Screen,Urine Negative ng/ml (<1000)
[2024-04-30 16:11] LABS: Barbiturates Screen,Urine Negative ng/ml (<200); Benzodiazepines Screen,Urine Negative ng/ml (<200)
[2024-04-30 16:14] LABS: Cannabinoid Screen,Urine Negative ng/ml (<50); Cocaine Screen,Urine Negative ng/ml (<300)
[2024-04-30 16:15] LABS: Methadone Screen,Urine Negative ng/ml (<300)
[2024-04-30 16:16] LABS: Opiate Screen,Urine Negative ng/ml (<300); Phencyclidine Screen,Urine Negative ng/ml (<25)
[2024-04-30 16:20] LABS: Thyroid Stimulating Hormone 1.19 uIU/mL (0.465-4.68)
[2024-04-30 16:28] LABS: Troponin I < 0.01 ng/ml (0.00-0.034)
== END 2024-04-30 17:06 | disposition home or self-care (01) ==
PROVIDERS: Physician Assistant; Emergency Provider Emergency Medicine; PCP Nurse Practitioner
DX: R00.0 Tachycardia, unspecified (principal); F41.9 Anxiety disorder, unspecified; R00.2 Palpitations
CPT/HCPCS: 80053; 80307; 81001; 83735; 83880; 84436; 84443; 84479; 84484; 85025; 85378; 93005; 93225; 93227; 96374; 99283; J2060

== ENCOUNTER 2024-05-28 06:47 | Outpatient (CLI) | payer OTHER, SELFPAY ==
--- NOTE | 2024-05-28 06:57 | NM_ITS ---
APPROVED REPORT Exam: Nuclear Stress Test Indication: soa..palpitations Patient Location: Outpatient Stress Tech: Laura Noyola [place] Tech:Zonia Joya SHIREENAnna Marie RT(R)(N) Ht: 6 ft 0 in Wt: 200 lbs HR: 52 bpm BP: 140/90 mmHg BSA: 2.13 m2 TID: 0.97 History: soa..palpitations Procedure: Patient exercised on Eriberto protocol 11:50 minutes and sec, resting heart rate 52 bpm, resting blood pressure 140/90 mmHg, with exercise maximum heart rate achived was 146 bpm which is 82 % of the maximum predicted heart rate and blood pressure was 196/95 mmHg. Test was stopped due to fatigue. Patient denied any complaint of chest pain. Patient has Average exercise capacity, achieved 11.2 METs of workload on treadmill, the blood pressure response to exercise was normal. Cardiac Stress and Resting SPECT Images: Cardiac Stress and Resting SPECT images were obtained using technetium 99m Myoview 30.6 mCi stress and 10.72 mCi at rest. This is a nondiagnostic nuclear stress test in the setting of inability to achieve target HR. Resting and stress imaging in supine and prone positions demonstrate a medium sized, moderate, predominantly fixed perfusion defect of the basal to mid anterior LV alexander. There is a small region of reversibility towards the mid anterior LV wall. Gated imaging demonstrates normal global and regional LV systolic function. LVEF is calculated at 52%. Conclusion: This is a nondiagnostic nuclear stress test in the setting of inability to achieve target HR. Medium sized, moderate, predominantly fixed perfusion defect of the basal to mid anterior LV alexander. There is a small region of reversibility towards the mid anterior LV wall. Findings are suggestive of partial reversible ischemia. Gated imaging demonstrates normal global and regional LV systolic function. LVEF is calculated at 52%. In the setting of inability to achieve target HR, further evaluation with alternative imaging modalities (e.g. CCTA) may be suggested prior to proceeding with invasive coronary angiography. Electronically signed by : Allyson Fernandez MD 05/28/2024 12:26:47
[2024-05-28] MEDS: ISOTOPE MYOVIEW (PER STUDY) 1 DOSE IV (09:25)
[2024-05-28] MEDS: SODIUM CHLORIDE 0.9% 10ML SYR (RAD ONLY) 10 ML IV ×2 (09:25→09:26)
== END 2024-05-28 23:59 | disposition home or self-care (01) ==
LOC: RAD 06:48
PROVIDERS: PCP Nurse Practitioner; Visit Provider Physician Assistant
DX: R07.89 Other chest pain (principal); R00.2 Palpitations; Z82.49 Family history of ischemic heart disease and other diseases of the circulatory system; R01.1 Cardiac murmur, unspecified
CPT/HCPCS: 78452; 93017; 93018; 93306; A9502

== ENCOUNTER 2024-06-16 06:54 | Outpatient (CLI) | payer OTHER, SELFPAY ==
[2024-06-16 07:36] VITALS: BP 122/73; PULSE 59; RESP 17; TEMP 36.9; O2SAT 100; BMI 27.8
[2024-06-16 08:09] LABS: Chloride 102 mmol/L (98-107)
[2024-06-16 08:10] LABS: Potassium 4.3 mmoL/L (3.5-5.1); Sodium 138 mmol/L (136-145)
[2024-06-16 08:13] LABS: Anion Gap 13.3 mEq/L (5-15); Blood Urea Nitrogen 8 mg/dl (9-20); Calcium 9.3 mg/dl (8.4-10.2); Carbon Dioxide 27 mmol/L (22.0-30.0); Creatinine Clearance Estimated 155 mL/min (50-200); Estimated Glomerular Filt Rate 105 ml/min (>60); GFR (African American) 127 ML/MIN (>60); Glucose 96 mg/dl (74-100)
--- NOTE | 2024-06-16 08:30 | CT_ITS ---
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 A noncontrast coronary calcium scan was performed. A CT attenuation threshold of 130 Hounsfield units (HU) was used for the detection of calcium in contiguous voxels of 1 sq mm in area to be counted as individual lesions. Bolus tracking in the ascending aorta with a threshold of 180 HU was performed. Immediately afterwards, ECG synchronized cardiac CT was then performed from the cardiac base to apex using retrospective gating with ECG tube current modulation. A total of 85 mL of Isovue 370 mg/mL contrast medium was administered at 5 mL/sec followed by a saline flush using a biphasic injection protocol. A tube voltage of 120 KVp was used. The average heart rate at the time of acquisition was 64 bpm and regular. Image Reconstruction Transaxial images were reconstructed at 0.67 mm slide thickness. Data was reviewed interactively on an advanced workstation capable of 2 and 3-dimensional displays in all conventional reconstruction formats, including multiplanar reformations, maximum intensity projections, curved multiplanar reformations, and volume rendered reconstructions. When applicable, selected routine images describing the relevant coronary anatomy and pathology were saved and sent to PACS. Complications None Technical Quality Overall image quality was good. Coronary artery opacification was adequate. Total DLP (Dose-Length Product) is 2581.5 mGy-cm. The reported value represents the total of one or more individual components during the CT acquisition of this date and at this time, and as such, the same value may appear in more than one CT report depending on the interpreting/reporting physicians. COMPARISON None FINDINGS CT Coronary Calcium Scoring LMA (Left Main Artery) = 118 LAD (Left Anterior Descending) = 25 LCX (Left Coronary Circumflex) = 57 RCA (Right Coronary Artery) = 7 Total Calcium Score = 207 using the AJ-130 method. The observed calcium score of 207 is at 99th percentile for subjects of the same age, sex, and race/ethnicity. The interpretation of the calcium heart score is based on the following continuum*: 0 = no calcified plaque detected (risk of coronary artery disease is very low ??? less than 5%) 1-10 = calcium detected in extremely minimal levels (risk of coronary diseases is still low ??? less than 10%) 11-100 = mild levels of plaque detected with certainty (mild or minimal narrowing of heart arteries is likely) 101-400 = definite,at least moderate levels of plaque detected (relatively high risk of a heart attack within 3-5 years) >401-999 = extensive levels of plaque detected (high risk of heart attack, high levels of vascular disease are present, high likelihood of at least one significant coronary narrowing) *The calcium heart score quantifies the burden of coronary calcification/plaque in the coronary arteries. The calcium heart score is not able to evaluate the presence or burden of non-calcified (i.e. soft) plaque. There is no identifiable calcification in the aortic valve, mitral annulus or mitral valve, pericardium, or myocardium. Coronary CT Angiography The coronary arterial system is right dominant. Quantitative Stenosis Grading: Left Main (LM): The left main originates normally from the left sinus of Valsalva. The LM bifurcates into the left anterior descending artery and left circumflex artery. There is mixed calcified/noncalcified plaque in the LM, with approximately 50% luminal stenosis. Left Anterior Descending (LAD) and Diagonal Branches: The LAD gives off 2 diagonal branch(es). There is mixed calcified/noncalcified plaque in the ostial and proximal LAD segment, with up to 50 to 70% luminal stenosis. There is no evidence of LAD-myocardial bridge. Left Circumflex (LCX) and Obtuse Marginals (OM): The LCX gives off 2 Obtuse Marginal (OM) branch(es). There is mixed calcified/noncalcified plaque in the proximal and mid LCx segments with up to 25-50% luminal stenosis. Right Coronary Artery (RCA): The RCA originates normally from the right sinus of Valsalva. The RCA gives off a posterior descending artery (PDA) and posterolateral (PL) branches. There is calcified plaque in the proximal RCA segment with no evidence of luminal stenosis. Non-Coronary Cardiac Findings: Analysis of the left ventricular (LV) structure and function was performed after 3-D reconstruction of the LV from axial images, with user-corrected automatic contouring for assessment of LV volumes and user-defined reconstruction from oblique planes for measurement of 3-D cardiac structure and function. -The left ventricle systolic function is normal. -There is no left atrial appendage filling defect. Two right pulmonary veins and two left pulmonary veins drain normally into the left atrium. -No pericardial thickening or calcification. -Central and branch pulmonary arteries in the [id number] are unremarkable. -Thoracic aorta within the visualized thoracic aortic-branches in the [id number] is unremarkable. Extracardiac Structures Calcified mediastinal lymphadenopathy is present. IMPRESSION -Presence of coronary calcification with an Agatston score = 207 using the AJ-130 method. -The observed calcium score of 207 is at 99th percentile for subjects of the same age, sex, and race/ethnicity. -Multivessel atherosclerotic coronary disease with possible significant flow-limiting atherosclerosis of the LM and ostial/proximal LAD segments. -CAD-RADS 4B. Management recommendations per ACC/AHA guidelines*, as clinically appropriate. - Incidental finding of calcified mediastinal lymphadenopathy. Correlation with new or recent CT chest is suggested. *Recommendations: CAD RADS 0: Reassurance. Consider non-atherosclerotic causes of chest pain. CAD RADS 1: Consider non-atherosclerotic causes of chest pain. Consider preventive therapy and risk factor modification. CAD RADS 2: Consider non-atherosclerotic causes of chest pain. Consider preventive therapy and risk factor modification, particularly for patients with nonobstructive plaque in multiple segments. CAD RADS 3: Consider further functional testing. Consider symptom-guided anti-ischemic and preventive pharmacotherapy as well as risk factor modification per published guideline statements. CAD RADS 4A: Consider further functional testing or invasive coronary angiography with revascularization per published guideline statements. Consider symptom-guided anti-ischemic and preventive pharmacotherapy as well as risk factor modification per published guideline statements. CAD RADS 4B: Invasive coronary angiography recommended with revascularization per published guideline statements. Consider symptom-guided anti-ischemic and preventive pharmacotherapy as well as risk factor modification per published guideline statements. CAD RADS 5: Consider invasive angiography and/or viability assessment with revascularization per published guideline statements. Consider symptom-guided anti-ischemic and preventive pharmacotherapy as well as risk factor modification per published guideline statements. CRITICAL RESULT None COMMUNICATION Per this written report The coronary and cardiac findings of this CCTA were reviewed, reported, and signed by Nacho Fernandez MD (Account Services Representative) Conclusion Electronically signed by : Allyson Fernandez MD 06/16/2024 13:31:16
[2024-06-16 08:42] VITALS: BP 158/88; PULSE 62; RESP 17; O2SAT 98
[2024-06-16] MEDS: NITROGLYCERIN 0.4MG SL TABLET SL (08:42)
[2024-06-16] MEDS: IOPAMIDOL-370 (76%);100ML BOTTLE 85 ML IV (08:57)
[2024-06-16 08:58] VITALS: BP 122/65; PULSE 66; RESP 17; O2SAT 96
[2024-06-16] MEDS: SODIUM CHLORIDE 0.9% 10ML SYR (RAD ONLY) 10 ML IV (08:58)
[2024-06-16] MEDS: 0.9 % SODIUM CHLORIDE 50 ML VIAL 41 ML IV (08:58)
== END 2024-06-16 09:00 | disposition home or self-care (01) ==
PROVIDERS: PCP Nurse Practitioner; Visit Provider Physician Assistant
DX: R07.89 Other chest pain (principal); R94.39 Abnormal result of other cardiovascular function study; I25.10 Atherosclerotic heart disease of native coronary artery without angina pectoris; I10 Essential (primary) hypertension
CPT/HCPCS: 75574; 80048; Q9967

== ENCOUNTER 2024-06-18 11:16 | Day surgery (SDC) | payer OTHER, SELFPAY ==
[2024-06-18] VITALS (9 sets, daily range): BP systolic 103–143; BP diastolic 57–87; PULSE 61–88; RESP 17–20; O2SAT 92–99; BMI 28.7
--- NOTE | 2024-06-18 10:47 | IR_ITS ---
APPROVED REPORT Patient Location: Outpatient PROCEDURES Left heart catheterization Left ventriculogram Selective coronary angiogram INDICATION Abnormal CCTA, Coronary artery disease Informed consent was obtained prior to the procedure. COMPLICATIONS none Estimated Blood Loss: less than 10ml TECHNIQUE One percent lidocaine used to anesthetize the right anterior aspect of the wrist. The right radial artery was accessed via the Seldinger technique. A 6 Nepalese sheath was placed in the right radial artery. 2.5 mg of Verapamil, 800 mcg of nitroglycerin, 1mg Lidocaine and 5000 U Heparin were given through the arterial sheath. The 6 Nepalese JL 3 guide catheter was also used to perform left heart catheterization, left ventriculogram and selective coronary angiogram. At the end of the procedure the sheath was removed good hemostasis was achieved using Traclet band, patient was transferred to the postop holding area in stable condition. ANGIOGRAPHIC RESULTS The left main artery Has a distal 50 to 60% concentric stenosis The left anterior descending artery Has an ostial 70% stenosis with additional diffuse proximal and mid vessel 30% stenoses with additional 40% stenosis in diagonal artery The circumflex artery Nondominant with an ostial proximal 70% concentric stenosis with additional mid vessel 30% stenosis and distal 30% stenosis The right coronary artery Dominant normal The MORENO ventriculogram reveals Hyperdynamic at 75% The left ventricular end-diastolic pressure Elevated at 20 mmHg IMPRESSION Severe distal left main disease which extends into the ostial LAD and proximal circumflex artery Hyperdynamic ventricle with 75% Elevated LVEDP PLAN 1. Referred to [facility] for surgical revascularization 2. Start high intensity statin 3. Continue aspirin perioperatively 4. Recommend sleep study Electronically signed by : Tyree Diez MD 06/18/2024 13:50:54
[2024-06-18 11:47] LABS: Basophils % 0.5 % (0.1-2.0); Eosinophils # 0.2 K/mm3 (0.0-0.4); Hematocrit 45.2 % (42.0-52.0); Hemoglobin 15.6 g/dL (14.1-18.0); Lymphocytes # 2.2 K/mm3 (0.7-4.5); Lymphocytes % 26.6 % (10-50); Mean Corpuscular HGB Conc 34.5 g/dL (31.8-35.4); Mean Corpuscular Volume 89.7 fl (80-94); Mean Platelet Volume 9.2 fl (7.4-10.4); Monocytes # 0.6 K/mm3 (0.1-1.0); Neutrophils # 5.2 K/mm3 (1.8-7.8); Neutrophils % 63.8 % (37.0-80.0); Nucleated Red Blood Cells # 0 10^3/uL; Nucleated Red Blood Cells % 0 %; Platelet Count 384 K/mm3 (142-424); Red Blood Count 5.04 M/mm3 (4.60-6.20); Red Cell Distribution Width 12.5 % (11.5-17.5); Red Cell Distribution Width-SD 41.1 fL; White Blood Count 8.1 K/mm3 (4.8-10.8)
[2024-06-18] MEDS: HEPARIN 1,000 UNITS/500ML NS (CATH LAB) 3000 UNIT IV (13:06)
[2024-06-18] MEDS: diphenhydrAMINE 50MG/ML VIAL 50 MG IV (13:06)
[2024-06-18] MEDS: 0.9 % SODIUM CHLORIDE 500 ML 25 ML IV (13:06)
[2024-06-18] MEDS: VERAPAMIL 2.5MG/ML 2ML VIAL 2.5 MG IV (13:07)
[2024-06-18] MEDS: HEPARIN 1,000 UNITS/ML 10ML VIAL (CATH LAB) 5000 UNIT IV (13:07)
[2024-06-18] MEDS: MIDAZOLAM HCL 1MG/ML 5ML VIAL 1 MG IV (13:07)
[2024-06-18] MEDS: FENTANYL 100MCG/2ML VIAL 50 MCG IV (13:07)
[2024-06-18] MEDS: NITROGLYCERIN 800MCG/8ML SYR (CATH LAB) 800 MCG IA (13:08)
[2024-06-18] MEDS: IOPAMIDOL-370 (76%);100ML BOTTLE 60 ML IV (14:22)
== END 2024-06-18 15:36 | disposition home or self-care (01) ==
PROVIDERS: PCP Nurse Practitioner; Visit Provider Internal Medicine
DX: R94.39 Abnormal result of other cardiovascular function study (principal); R07.89 Other chest pain; I10 Essential (primary) hypertension; R00.0 Tachycardia, unspecified; R00.2 Palpitations; E78.5 Hyperlipidemia, unspecified; F17.210 Nicotine dependence, cigarettes, uncomplicated; Z79.82 Long term (current) use of aspirin; Z79.899 Other long term (current) drug therapy; Z82.49 Family history of ischemic heart disease and other diseases of the circulatory system
CPT/HCPCS: 85025; 93458; 99152; C1725; C1769; J1200; J1644; J3010; Q9967